=== PATIENT | male | born 1995 | race American Indian/Alaskan Native ===

== ENCOUNTER 2017-12-30 15:13 | Emergency (ER) | payer SELFPAY ==
[2017-12-30 15:20] VITALS: BMI 25.8
[2017-12-30 15:23] VITALS: BP 124/73; PULSE 63; RESP 18; TEMP 98.4; O2SAT 98
--- NOTE | 2017-12-30 15:41 | C.PDOC ---
History Of Present Illness 22-year-old male, presents to the emergency department with multiple complaints. Patient states that two weeks ago, he was at the gym, and hit the right side of his head on the bar. At the time he felt a little light headed, which resolved. States that since then, he has been having a headache, associated with a cough and feeling "slow". Additionally, for the past five days , he reports flu-like symptoms, nasal congestion, a forehead headache, and a scratchy throat. he denies any nausea/vomiting, fever. Time Seen by Provider: 12/30/17 15:25 Chief Complaint (Nursing): Medical Clearance History Per: Patient History/Exam Limitations: no limitations Current Symptoms Are (Timing): Still Present Severity: Moderate Past Medical History Reviewed: Historical Data, Nursing Documentation, Vital Signs Vital Signs: Last Vital Signs Temp 98.4 F 12/30/17 15:20 Pulse 63 12/30/17 15:20 Resp 18 12/30/17 15:20 BP 124/73 12/30/17 15:20 Pulse Ox 98 12/30/17 20:58 - Medical History PMH: No Chronic Diseases Surgical History: No Surg Hx Family History: States: Unknown Family Hx - Social History Hx Alcohol Use: No Hx Substance Use: No - Immunization History Hx Tetanus Toxoid Vaccination: No Hx Influenza Vaccination: No Hx Pneumococcal Vaccination: No Review Of Systems Constitutional: Negative for: Fever Eyes: Negative for: Vision Change, Redness ENT: Positive for: Nose Congestion, Throat Pain. Negative for: Ear Pain Cardiovascular: Negative for: Chest Pain, Palpitations Respiratory: Positive for: Cough. Negative for: Shortness of Breath Gastrointestinal: Negative for: Nausea, Vomiting Musculoskeletal: Negative for: Neck Pain, Back Pain Skin: Negative for: Rash Neurological: Positive for: Confusion, Headache. Negative for: Weakness, Numbness, Dizziness Physical Exam - Physical Exam Appears: Non-toxic, No Acute Distress Skin: Normal Color, Warm, Dry, No Rash Head: Atraumatic, Normacephalic, No Tenderness, No Swelling, No Abrasion, No Laceration Eye(s): bilateral: Normal Inspection, PERRL, EOMI, Other (no nystagmus) Ear(s): Bilateral: Normal Nose: Normal Oral Mucosa: Moist Lips: Normal Appearing Neck: Normal ROM Chest: Symmetrical Cardiovascular: Rhythm Regular, No Murmur Respiratory: Normal Breath Sounds, No Accessory Muscle Use Extremity: Normal ROM, No Tenderness, No Deformity, No Swelling Pulses: Left Radial: Normal Neurological/Psych: Oriented x3, Normal Speech, Normal Cognition, Normal Cranial Nerves, No Cerebellar Signs, Normal Motor, Normal Sensation Gait: Steady ED Course And Treatment O2 Sat by Pulse Oximetry: 98 Pulse Ox Interpretation: Normal (RA) Medical Decision Making Medical Decision Making: Patient with 2 week old head injury and URI complaints. Patient appears well is alert and oriented without neuro deficits. No clinical indication for CT at this time. Discussed the risk of radiation and unlikely to find any abnormality on study needing intervention. The patient agreed no CT will be done. Symptoms likely related to concussion and recommend observation and symptomatic treatment with analgesics. Will prescribe nasal spray and sudafed to take for sinus symptoms Disposition Counseled Patient/Family Regarding: Diagnosis, Need For Followup, Rx Given - Disposition Referrals: Ebenezer Peguero MD [Staff Provider] - Disposition: HOME/ ROUTINE Disposition Time: 16:00 Condition: STABLE Additional Instructions: Follow up with your primary medical doctor or clinic in 2-5 days for further evaluation. Take medications as prescribed. Return to the emergency department at any time if symptoms persist or worsen. Prescriptions: Mometasone Furoate [Nasonex] 17 gm NS DAILY #1 spray.pump Pseudoephedrine HCl [Sudafed] 30 mg PO Q8 #20 tablet Instructions: Sinusitis in Adults, Concussion, Adult (DC) Forms: [facility] (Mexican) - POA Present On Arrival: None - Clinical Impression Clinical Impression: Concussion, Sinus congestion - Scribe Statement The provider has reviewed the documentation as recorded by the Scribe (Onur Martinez) All medical record entries made by the Scribe were at my direction and personally dictated by me. I have reviewed the chart and agree that the record accurately reflects my personal performance of the history, physical exam, medical decision making, and the department course for this patient. I have also personally directed, reviewed, and agree with the discharge instructions and disposition.
== END 2017-12-30 16:08 | disposition home or self-care (01) ==
LOC: C.ER 15:13
DX: S06.0X0A Concussion without loss of consciousness, initial encounter (principal); R09.81 Nasal congestion; W22.8XXA Striking against or struck by other objects, initial encounter; Y92.39 Other specified sports and athletic area as the place of occurrence of the external cause